=== PATIENT | female | born 1980 | race Caucasian/White ===

== ENCOUNTER → 2016-10-11 | Outpatient (CLI) | payer BC, OTHER ==
[~2016-10-11] MED LIST: CALC500C3 PO; DOCU-94 PO; FERR1TAB23 PO; IBUP-1428 PO; OXYC-57 PO; PRENTAB26 PO
== END | disposition home or self-care (01) ==
LOC: C.LABSPEC 12:51
PROVIDERS: ATTEND Obstetrics & Gynecology
DX: O09.523 Supervision of elderly multigravida, third trimester (principal); Z3A.00 Weeks of gestation of pregnancy not specified

== ENCOUNTER 2016-11-11 06:10 | Inpatient (IN) | payer BC, OTHER ==
--- NOTE | 2016-11-10 10:37 | PAT Medication Instructions ---
Service Date Nov 10, 2016. Current Home Medication List Calcium Carbonate (Tums), 1-2 TAB PO PRN Multivit/Min/Iron/Fol Ac/Pren ( Vitamin), 1 TAB PO QAM Medication Instructions For Your Scheduled Surgery - Hold the following medications the morning of surgery: Calcium Carbonate (Tums), 1-2 TAB PO PRN Multivit/Min/Iron/Fol Ac/Pren ( Vitamin), 1 TAB PO QAM If you have any questions please call us at [phone] (Shirley Villa PA-C) or [phone] or [phone]
[2016-11-10 12:27] LABS: BASO % 0.1 %; BASO ABS # 0.01 K/uL (0-0.2); COMPLETE YES; EOS % 0.5 %; HEMATOCRIT 32.2 % (37-47); IG% 0.4 %; LYMPH ABS # 2.06 K/uL (1.2-3.4); MEAN CELL VOLUME 79.7 fL (80-100); MEAN CORPUSCULAR HEMOGLOBIN 25.5 pg (25-34); MEAN PLATELET VOLUME 11.4 fL (7.4-10.4); PLATELET COUNT 169 K/uL (130-400); RED BLOOD COUNT 4.04 M/uL (4.2-5.4); WHITE BLOOD COUNT 7.92 K/uL (4.8-10.8)
[~2016-11-11] VITALS: Ht 157.5 cm; Wt 76.4 kg
[2016-11-11] VITALS (9 sets, daily range): BP systolic 117–120; BP diastolic 80–82; PULSE 76–80; TEMP 36.2–36.7; O2SAT 96–100; Ht 157.5 cm; Wt 76.4 kg
--- NOTE | 2016-11-11 01:13 | History and Physical ---
History & Physical Date Nov 11, 2016. Chief Complaint Scheduled repeat section History of Present Illness The patient is a 36 year old @ 40 4/7 who presents for scheduled repeat section. She is feeling well, no complaints. complicated by history of section x 1 and advanced maternal age. Prior was performed for nonreassuring heart tones during labor. Past Medical/Surgical History Medical history: orthostatic hypotension, notes she has fainted all of her life. Surgical history: wisdom teeth, x 1, cryosurgery of cervix Additional History Hepatic Disease: No Endocrine Disorder: No Kidney Disease: No Hypertension: No Heart Disease: No Infectious Diseases: No LMP: 02/01/16 Allergies Coded Allergies: No Known Allergies (Unverified , 11/10/16) Home Medications Scheduled Calcium Carbonate (Tums), 1-2 TAB PO PRN Multivit/Min/Iron/Fol Ac/Pren ( Vitamin), 1 TAB PO QAM Physical Examination Skin: warm/dry, no rash Eyes: normal inspection, sclerae normal ENT: normal ENT inspection Head: normocephalic, atraumatic Neck: supple, no adenopathy, trachea midline Respiratory/Chest: lungs clear, normal breath sounds, no respiratory distress Cardiovascular: regular rate, rhythm, no edema, no murmur Abdomen / GI: non tender, + pertinent finding (gravid) Back: normal inspection Extremities: normal inspection, normal range of motion Neurologic/Psych: no motor/sensory deficits, alert, normal reflexes, oriented x 3 Diagnosis 36yo @ 40 4/7 History of section x 1 Advanced Maternal Age Plan of Treatment Repeat section. Admit to L&D, labs, EFM/toco, IVF. Ancef as pre-op antibiotic.
[~2016-11-11 06:10] MED LIST changes: +CITRIC ACID/SODIUM CITRATE 15 ML UDC PO SCH; -DOCU-94 PO; -FERR1TAB23 PO; -IBUP-1428 PO; +LACTATED RINGER'S 1000ML 1,000 ML IV SCH; -OXYC-57 PO
[2016-11-11] MEDS ORDERED: CEFAZOLIN IV 2,000 MG/60 ML D5W IV ONE (07:00)
[2016-11-11] MEDS ORDERED: MoRPHine SULFATE PF 1 MG/ML 10 ML AMP/VIAL ONE (07:51)
[2016-11-11] MEDS ORDERED: FENTANYL CITRATE INJ 50 MCG/1 ML 2 ML VIAL ONE (07:51)
--- NOTE | 2016-11-11 08:02 | History & Physical Bridge Note ---
H&P Re-Evaluation Bridge Note: I have examined the patient, reviewed the History & Physical and in the interval since the performance of the History & Physical I have noted the following changes of clinical significance: No changes noted
[2016-11-11] MEDS ORDERED: OXYTOCIN INJ 10 UNITS/ML VIAL ONE ×4 (08:36→08:52)
[2016-11-11] MEDS ORDERED: KETOROLAC TROMETHAMINE 30 MG/ML VIAL ONE (08:36)
[2016-11-11] MEDS ORDERED: ONDANSETRON INJ 2 MG/ML 2 ML VIAL ONE (08:36)
[2016-11-11] MEDS ORDERED: PHENYLEPHRINE 100MCG/ML 5ML SYR ONE (08:36)
[2016-11-11] MEDS ORDERED: EpHEDrine SULFATE 50MG/5ML SYR ONE (08:36)
--- NOTE | 2016-11-11 09:16 | [facility] Post Operative Brief Note ---
Immediate Operative Summary Operative Date Nov 11, 2016. Pre-Operative Diagnosis Term , desire for repeat Caesarean section Post-Operative Diagnosis Same with delivery of living male child at 0836 Procedure(s) Performed Repeat Low transverse Caesarean section Surgeon Dr. Livier Morris No Bake Molder Surgeon(s) Dr.Daniel Davis Estimated Blood Loss 400 Findings Viable male , Apgars 8/9. Weight 8#9. Normal appearing uterus, tubes, ovaries. Specimens a. placenta- hold b. cord blood specimen Drains Vásquez, clear yellow Anesthesia Spinal Complication(s) None Disposition Recovery Room / PACU
[2016-11-11] MEDS ORDERED: OXYTOCIN INJ 20 UNITS in LACTATED RINGER'S 1000ML 1,000 ML IV SCH (09:29)
[2016-11-11] MEDS ORDERED: LANOLIN OINT EXT PRN ×2 (09:30)
[2016-11-11] MEDS ORDERED: DIPHTHERIA/TETANUS/PERTUSSIS 0.5 ML SYR/VIAL IM. ONE (09:30)
[2016-11-11] MEDS ORDERED: BENZOCAINE 20% AER SPR 82.5 GM CAN EXT PRN (09:30)
[2016-11-11] MEDS ORDERED: SUPERCREAM 0.870 % 15GM JAR EXT PRN (09:30)
[2016-11-11] MEDS ORDERED: HYDROCORTISONE ACETATE 25 MG SUPP PR PRN (09:30)
[2016-11-11] MEDS ORDERED: SODIUM CHLORIDE 0.9% 1000ML 1,000 ML IV PRN (09:37)
[2016-11-11] MEDS ORDERED: LACTATED RINGER'S 1000ML 500 ML IV PRN (09:37)
[2016-11-11] MEDS ORDERED: NALOXONE HCL INJ 0.08 MG in SYRINGE 1.8 ML IV PRN (09:37)
[2016-11-11] MEDS ORDERED: NALOXONE HCL INJ 1 MG in SODIUM CHLORIDE 0.9% 1000ML 1,000 ML IV PRN (09:37)
[2016-11-11] MEDS ORDERED: ONDANSETRON INJ 2 MG/ML 2 ML VIAL IV PRN (09:45)
[2016-11-11] MEDS ORDERED: PROMETHAZINE HCL INJ 6.25 MG in SODIUM CHLORIDE 0.9% 50ML 50 ML IV PRN (09:45)
[2016-11-11] MEDS ORDERED: EpHEDrine SULFATE INJ 50 MG/ML AMP IV PRN (09:45)
[2016-11-11] MEDS ORDERED: METOCLOPRAMIDE HCL INJ 10 MG in SODIUM CHLORIDE 0.9% 50ML 50 ML IV PRN (09:45)
[2016-11-11] MEDS ORDERED: NO NARCOTICS OR SEDATIVES SCH (09:45)
[2016-11-11] MEDS ORDERED: MoRPHine SULFATE PF 1 MG/ML 10 ML AMP/VIAL EPI PRN (09:45)
[2016-11-11] MEDS ORDERED: MEPERIDINE HCL 25 MG/ML CARP IV PRN (09:45)
[2016-11-11] MEDS ORDERED: NALBUPHINE HCL INJ 10 MG/ML AMP IV PRN (09:45)
[2016-11-11] MEDS ORDERED: LORAZEPAM INJ 0.5 MG in SYRINGE 0.75 ML IV PRN (09:45)
[2016-11-11] MEDS ORDERED: NALOXONE HCL 0.4 MG/1 ML VIAL/CARP IV PRN (09:45)
[2016-11-11] MEDS ORDERED: LORAZEPAM 1 MG TAB PO PRN (09:45)
[2016-11-11] MEDS ORDERED: DiphenhydrAMINE HCL 50 MG/ML VIAL IV PRN ×2 (09:45)
[2016-11-11] MEDS ORDERED: MoRPHine SULFATE 2 MG/ML CARP IV PRN (09:45)
[2016-11-11] MEDS ORDERED: KETOROLAC TROMETHAMINE 30 MG/ML VIAL IV. PRN (09:45)
--- NOTE | 2016-11-11 10:21 | OPERATIVE REPORT ---
DATE OF OPERATION: 11/11/2016 PREOPERATIVE DIAGNOSIS: Term with desire for repeat section. POSTOPERATIVE DIAGNOSIS: Same. PROCEDURES PERFORMED: Repeat low transverse section. SURGEON: Dr. Morris. CAR[employer] SERVICES COORDINATOR: Dr. Davis. ESTIMATED BLOOD LOSS: 400 mL FINDINGS: Viable male , Apgars 8 and 9, weight 8 pounds 9 ounces. Normal appearing uterus, tubes and ovaries. SPECIMENS: Placenta hold. DRAINS: Vásquez, clear yellow. ANESTHESIA: Spinal. COMPLICATIONS: None. DISPOSITION: Stable and good to recovery room. INDICATIONS FOR PROCEDURE: The patient is a 36-year-old G2, P1-0-0-1 at 40 weeks and 4 days, who attempted to go into labor with the hope of delivering by . However, she made no cervical change and elected to proceed with repeat section prior to labor. DESCRIPTION OF DELIVERY: The patient was seen in the preoperative room where risks, benefits, alternatives were reviewed. All questions were answered. She had previously signed informed consent in the office. She was then taken to the operating room where 2 grams of Ancef were infused, spinal anesthesia was introduced. She was prepared and draped in the usual sterile fashion in the supine position with a leftward tilt. A scalpel was used to perform the Pfannenstiel skin incision and as part of this incision, the previous scar was removed. The incision was then carried down to the layer of the fascia with the scalpel and nicked at midline and this incision was extended bilaterally with both sharp and blunt dissection. The superior aspect of the fascial incision was grasped with Nadine clamps x2, elevated off the underlying rectus abdominis muscles and dissected off bluntly and sharply. In a similar fashion, the inferior aspect of the incision was dissected. The muscles were at midline and entered bluntly and digitally. The incision was extended bluntly. The bladder blade was placed. The bladder flap was created using Metzenbaums and Lao bladder blade was replaced. Using a new scalpel, the hysterotomy incision was performed In a low transverse incision. This was extended cephalad caudad manually. The infant was delivered from a cephalic presentation. The head delivered followed by the shoulders and the body. No nuchal cord was noted. A spontaneous cry was heard on the field. The cord was doubly clamped and cut. The baby was handed off to the waiting pediatrics team. A segment was retained in case we needed cord gases. Cord blood was obtained. The placenta was then delivered using gentle traction. The uterus was exteriorized and swept of all clots and debris. The hysterotomy incision was reapproximated using 0 Vicryl in running stitch. A second layer of the same suture was used to imbricate the incision. The uterus and abdomen were inspected. The abdomen was irrigated. The uterus was returned to the abdomen. The gutters were cleared of all clots and debris. Again, excellent hemostasis was observed. The fascial incision was reapproximated using 0 Vicryl in a running stitch. Subcutaneous tissue was reapproximated using interrupted sutures of 2-0 plain gut and the skin incision was reapproximated using 4-0 Vicryl in a subcuticular stitch. Steri-Strips were applied. The patient and the baby tolerated the delivery well and are in stable and good condition. I attest to the content of the Intraoperative Record and any orders documented therein. Any exceptions are noted below. AYUSH
--- NOTE | 2016-11-11 10:40 | Anesthesiology Progress Note ---
Anesthesia Post Op Note Date & Time Nov 11, 2016 at 10:40 Notes Mental Status: alert / awake / arousable, participated in evaluation Pt Amnestic to Procedure: No Nausea / Vomiting: adequately controlled Pain: adequately controlled Airway Patency, RR, SpO2: stable & adequate BP & HR: stable & adequate Hydration State: stable & adequate Neuraxial Anesthesia: was administered, sensory block is resolving Anesthetic Complications: no major complications apparent
[2016-11-11] MEDS ORDERED: LACTATED RINGER'S 1000ML 500 ML IV ONE (14:15)
[2016-11-11] MEDS ORDERED: NURSING VERBAL MED ORDER ONE ×2 (14:15→18:45)
[2016-11-11 15:13] LABS: THYROID STIMULATING HORMONE 3.98 uIu/ml (0.300-4.500)
[2016-11-11] MEDS ORDERED: SCOPOLAMINE 1.5 MG TDSY TD ONE (18:45)
[2016-11-11] MEDS: DOCUSATE SODIUM 100 MG CAP PO SCH (19:33)
[2016-11-12] VITALS (7 sets, daily range): BP systolic 101–111; BP diastolic 67–74; PULSE 60–93; TEMP 36.7–37.4; O2SAT 98–99
[2016-11-12] MEDS ORDERED: KETOROLAC TROMETHAMINE 30 MG/ML VIAL IV. PRN (02:00)
[2016-11-12] MEDS ORDERED: DiphenhydrAMINE HCL 50 MG/ML VIAL IV PRN (02:00)
[2016-11-12] MEDS ORDERED: OXYCODONE/ACETAMINOPHEN 5-325 TAB PO PRN ×2 (02:00)
[2016-11-12] MEDS ORDERED: ONDANSETRON INJ 2 MG/ML 2 ML VIAL IV PRN (02:00)
[2016-11-12] MEDS ORDERED: DC INTRASPINAL MORPHINE ONE (02:00)
--- NOTE | 2016-11-12 07:34 | Progress Note ---
Subjective Nov 12, 2016. Subjective conversation w/ patient, physical exam Ambulation: ambulating normally Voiding: no voiding problems Passing Gas: No Diet Tolerance: Regular Diet (hungry, but still has not passed gas so therefore has not eaten yet) Lochia: Small Feeding Type: Breast Feeding Review of Systems Constitutional: No chills, No fatigue, No fever Respiratory: No cough, No shortness of breath Cardiac: No chest pain, No palpitations Objective Vital Signs Date Time Temp Pulse Resp B/P Pulse Ox O2 Delivery O2 Flow Rate FiO2 11/12/16 04:02 37.0 68 20 101/67 Room Air 11/12/16 02:00 20 98 11/12/16 01:00 18 99 11/12/16 00:00 36.9 93 18 111/74 98 Room Air 11/12/16 00:00 18 98 11/12/16 00:00 98 Room Air 11/11/16 23:00 18 96 11/11/16 22:00 16 98 11/11/16 21:00 18 100 11/11/16 20:00 18 99 11/11/16 20:00 99 Room Air 11/11/16 20:00 36.7 76 18 120/80 99 Room Air 11/11/16 19:00 16 99 11/11/16 18:03 16 97 11/11/16 18:00 36.7 11/11/16 17:00 16 97 11/11/16 16:45 36.2 80 20 117/82 Room Air Physical Exam General Appearance: WELL-APPEARING, NO APPARENT DISTRESS Respiratory/Chest: lungs clear, no respiratory distress Cardiovascular: regular rate, rhythm, no murmur Abdomen: non tender, soft Fundus: Firm, Non-Tender, Relation to Umbilicus Extremities: non-tender, no calf tenderness Laboratory Results Last 24 Hours Test 11/11/16 14:30 11/12/16 06:00 Thyroid Stimulating Hormone (TSH) 3.980 uIu/ml Free Thyroxine 0.91 ng/dl Assessment and Plan Post-Op Day#: 1 Continue Routine Care: s/p day 1 - vital signs reviewed and wnl (Patient had low temp yesterday after and used bear hugger warmer, temp increased back to normal afterwards) - hgb pending this am - Blood: O+, GBS-, Rubella immune - Patient doing well clinically - Still has not passed gas, waiting to pass gas before eating regular diet - Encourage breast feeding, encourage ambulation - CONTINUE ROUTINE POST CARE
[2016-11-12] MEDS: CHECK SCOPOLAMINE PATCH PLACEMENT SCH ×3 (08:00→18:28)
[2016-11-12 08:30] LABS: BASO % 0.1 %; BASO ABS # 0.01 K/uL (0-0.2); EOS % 0.1 %; HEMATOCRIT 26.9 % (37-47); IG% 0.3 %; LYMPH % 14.3 %; LYMPH ABS # 1.28 K/uL (1.2-3.4); MEAN CELL VOLUME 78.7 fL (80-100); MEAN CORPUSCULAR HEMOGLOBIN 25.4 pg (25-34); MEAN CORPUSCULAR HGB CONC 32.3 g/dl (32-36); MEAN PLATELET VOLUME 10.7 fL (7.4-10.4); MONO % 5.8 %; NEUT % 79.4 %; PLATELET COUNT 128 K/uL (130-400); RED BLOOD COUNT 3.42 M/uL (4.2-5.4); WHITE BLOOD COUNT 8.98 K/uL (4.8-10.8)
[2016-11-12] MEDS: PRENATAL VITAMIN TAB PO SCH (08:48)
[2016-11-12] MEDS: DOCUSATE SODIUM 100 MG CAP PO SCH ×2 (08:48→19:49)
[2016-11-12] MEDS: IBUPROFEN 600 MG TAB PO PRN ×3 (08:49→21:13)
[2016-11-12 09:08] LABS: COMPLETE YES
[2016-11-13] MEDS: IBUPROFEN 600 MG TAB PO PRN ×2 (03:45→07:41)
[2016-11-13] MEDS: PRENATAL VITAMIN TAB PO SCH (07:41)
[2016-11-13] MEDS: DOCUSATE SODIUM 100 MG CAP PO SCH (07:41)
[2016-11-13 07:47] VITALS: BP 102/69; PULSE 66; TEMP 36.7
[2016-11-13] MEDS ORDERED: FERR1TAB23 PO (08:44)
[2016-11-13] MEDS ORDERED: OXYC-57 PO (08:44)
[2016-11-13] MEDS ORDERED: IBUP-1428 PO (08:44)
[2016-11-13] MEDS ORDERED: DOCU-94 PO (08:44)
--- NOTE | 2016-11-13 08:45 | Discharge Instructions ---
Discharge Instructions Date of Service Nov 13, 2016. Admission Reason for Admission: Previous Section Discharge Discharge Diagnosis / Problem: s/p RLTCS Discharge Goals Goal(s): Routine recovery after Activity Recommendations Activity Limitations: per Instructions/Follow-up section . Instructions / Follow-Up Instructions / Follow-Up ACTIVITY RECOMMENDATIONS: * Gradual return to full activity over the next 2-3 weeks. * No lifting - nothing heavier than baby over the next 2-3 weeks. * Do not engage in vigorous exercise, sexual activity or sports until cleared by your physician. * Do not drive or operate any motorized equipment until cleared by your physician. * You may shower/bathe daily. MEDICATIONS: For discomfort or pain, you may use Acetaminophen (Tylenol), Ibuprofen (Advil), or Naproxen (Aleve) following the package directions. For constipation you may use Colace following the package directions. BREAST CARE: If you are not breast feeding: * Wear a supportive bra 24 hours a day for one to two weeks. * Avoid stimulating your breasts and nipples as much as possible during the first few weeks after delivery. * When taking a shower, have the warm water hit your back, not breasts. * When your breasts feel full, apply ice packs. Usually three to four times a day helps ease the discomfort. * Take a mild pain medication (Tylenol / Motrin) when you are uncomfortable. If breast feeding: * Use breast milk to lubricate nipples. Lansinoh cream may be used for sore nipples. You do not need to remove cream prior to breast feeding. If using a different brand of cream, check the label for directions regarding removal of cream prior to nursing. * Wear a supportive bra. * If having problems with breasts or breast feeding, call a business analysis consultant or your health care provider. SPECIAL CARE INSTRUCTIONS: When you are discharged from the hospital, it is important for you to follow the instructions listed below: * During the first week at home, you should be able to care for yourself and your baby. In addition, the usual light household activities are encouraged. * Limit your activities to the way you feel. Do not try to clean the house or move furniture. Be sensible. * If you actively engage in sports and have done so up until the time of your delivery, you may resume these activities as soon as you feel able. This may take up to one month or even longer. Use good judgment. * Continue to take your vitamins for at least six weeks after the of your baby. * Your diet need not be limited unless you were on a special diet before your delivery. Breast-feeding mothers need around 2500 calories per day and at least 64-80 ounces of fluid per day (8 to 10 glasses). * You should eat foods from the four major food groups. Crash diets or fad diets are to be avoided. Eating lean meats, fresh fruits and vegetables, low-fat dairy products, high fiber foods and a regular exercise program, will help you get back to your pre- weight without putting your health at risk. * Constipation is sometimes a problem after delivery. Take a mild laxative as needed. If breast feeding, Milk of Magnesia is acceptable to use. You may use a suppository or Fleets enema. * A daily shower or tub bath is suggested. Wash incision daily with warm soapy water and pat dry. It doesn't need to be covered unless drainage is present. * A bloody vaginal discharge will usually continue until around four weeks . A small amount of bleeding may continue for as long as six weeks. Vaginal discharge changes from the bright red bleeding after delivery to pink then brownish and finally yellowish-pink before becoming white and disappearing. * Bleeding may increase with activity. Your first period may come in 4-8 weeks. If you are breast feeding, your period may be delayed even longer. * [place] (sex) can begin whenever both you and your partner feel comfortable and do not have any form of genital infection. It is recommended that you wait at least six weeks for internal and external healing to occur. If you have questions, please talk to your health care practitioner. A condom should be used to prevent infection and . * Foreplay, gentle intercourse and lubrication is very important the first several times to prevent pain. A water-based lubricant such as K-Y jelly or Astroglide may be used. * If you have RH negative blood and your baby is RH positive, you will receive RHOGAM by injection prior to discharge. The nurse will give you a card to keep with you that has the date and place that you received RHOGAM after delivery. * During your care, you had a Rubella screen done to check for the presence of rubella antibodies in your blood. If your test was negative, you will receive a Rubella vaccine prior to discharge. This vaccine may cause a fever, soreness at the injection site and flu-like symptoms. If these symptoms persist, notify your health care practitioner. is not advised for one month after a Rubella vaccine. * Verbalizes understanding of car seat law as reviewed with patient nursing. * Car Seat hand-out given and reviewed with patient by nursing. * Shaken baby information reviewed with patient by nursing. Call you doctor if: * Heavy bleeding (saturating several pads an hour) or passing clots the size of your fist. * A fever >101 degrees F (38.3 degrees C) on two occasions four hours apart and /or chills. * Unusual pain in the pelvic or vaginal areas. * Call the doctor for any increased redness, drainage or swelling around the incision and any pain unrelieved by prescribed pain medication. * "Baby Blues" lasting longer than two weeks. If you have any questions or concerns, call your health care practitioner at . FOLLOW UP VISIT: * Please call the office at to schedule a 6 week examination. It is important you keep this appointment. It is important for you to make arrangements for either yearly or twice yearly check-ups thereafter. Current Hospital Diet Patient's current hospital diet: Vegetarian Diet, Regular OB Diet Discharge Diet Recommended Diet: Regular OB Diet Procedures Procedures Performed: Repeat Low transverse Caesarean section Pending Studies Studies pending at discharge: no Medical Emergencies . Who to Call and When: Medical Emergencies: If at any time you feel your situation is an emergency, please call [phone] immediately. . Non-Emergent Contact Non-Emergency issues call your: Primary Care Provider, [employer] . . "Provider Documentation" section prepared by Livier Morris. VTE Core Measure Inpt VTE Proph given/why not?: Joey Garvey
--- NOTE | 2016-11-13 08:49 | Progress Note ---
Subjective Nov 13, 2016. Subjective conversation w/ patient, physical exam Ambulation: ambulating normally Voiding: no voiding problems Passing Gas: Yes Diet Tolerance: Regular Diet Lochia: Moderate Feeding Type: Breast Feeding Comment: Feeling well, no complaints. Review of Systems Constitutional: No problem reported Respiratory: No problem reported Cardiac: No problem reported Breast: No problem reported Abdomen: No problem reported Female : No problem reported Objective Vital Signs Date Time Temp Pulse Resp B/P Pulse Ox O2 Delivery O2 Flow Rate FiO2 11/13/16 07:47 36.7 66 20 102/69 Room Air 11/12/16 23:45 36.7 60 18 103/71 Room Air 11/12/16 23:45 Room Air 11/12/16 16:03 Room Air 11/12/16 16:01 37.0 69 20 107/73 Room Air Physical Exam General Appearance: WELL-APPEARING, WD/WN Respiratory/Chest: no respiratory distress Cardiovascular: regular rate, rhythm Abdomen: non tender, soft Fundus: Firm Incision Description: Clean, Dry & Intact Extremities: normal inspection Assessment and Plan Problem List POD#2 RLTCS Anemia of acute blood loss, asymptomatic Post-Op Day#: 2 Continue Routine Care: POD#2 - doing well. Would like to go home. Rx given: percocet, motrin, colace, iron Discussed hgb 8.7, asymptomatic, will Rx iron. All discharge instructions reviewed, questions answered. Followup in office 6 weeks. Discharge home today.
[2016-11-13 10:50] VITALS: BP_DIAS 69; PULSE 66; TEMP 36.7
--- NOTE | 2016-11-17 23:12 | DISCHARGE SUMMARY ---
ADMISSION DIAGNOSIS: Term intrauterine with desire for repeat section. DISCHARGE DIAGNOSIS: Same. PROCEDURES PERFORMED: Repeat low transverse section with spinal anesthesia. CONDITION ON DISCHARGE: Stable and good. DESCRIPTION OF HOSPITAL COURSE: The patient was admitted following her repeat section. Of note, following spinal anesthesia, the patient experienced hypothermia, this resolved after the spinal wore off. She did experience nausea and vomiting throughout the time of the spinal. After surgery, the patient recovered in standard fashion and received routine postoperative care. She was discharged to home in stable and good condition. Follow up in 6 weeks in the office. ACTIVITY: No heavy lifting and pelvic rest. DIET: Regular. MEDICATIONS: Motrin and Percocet.
== END 2016-11-13 11:15 | disposition home or self-care (01) | DRG 766 ==
LOC: C.LD 06:10 → EDSTATUS 14:06 → C.OBG 17:02
PROVIDERS: ADMIT Obstetrics & Gynecology; ATTEND Obstetrics & Gynecology
PROC: 10D00Z1 Extraction of Products of Conception, Low, Open Approach (ICD-10-PCS; principal; 2016-11-11 08:15)
DX: O34.211 Maternal care for low transverse scar from previous cesarean delivery (principal); O09.523 Supervision of elderly multigravida, third trimester; I95.1 Orthostatic hypotension; Z3A.40 40 weeks gestation of pregnancy; Z37.0 Single live birth

== ENCOUNTER → 2017-12-04 | Outpatient (CLI) | payer OTHER ==
[~2017-12-04] MED LIST changes: -CITRIC ACID/SODIUM CITRATE 15 ML UDC PO SCH; +DOCU-94 PO; +FERR1TAB23 PO; -LACTATED RINGER'S 1000ML 1,000 ML IV SCH
[2017-12-04 18:23] LABS: BASO % 0.1 %; BASO ABS # 0.01 K/uL (0-0.2); EOS % 0.1 %; EOS ABS # 0.01 K/uL (0-0.5); HEMATOCRIT 38.3 % (37-47); HEMOGLOBIN 13.3 g/dL (12.0-16.0); IG# 0.01 K/uL (0.00-0.02); LYMPH % 13.9 %; LYMPH ABS # 1.27 K/uL (1.2-3.4); MEAN CELL VOLUME 79.8 fL (80-100); MEAN CORPUSCULAR HEMOGLOBIN 27.7 pg (25-34); MEAN CORPUSCULAR HGB CONC 34.7 g/dl (32-36); MEAN PLATELET VOLUME 10.7 fL (7.4-10.4); MONO % 3.2 %; MONO ABS # 0.29 K/uL (0.11-0.59); NEUT % 82.6 %; NEUT ABS # 7.55 K/uL (1.4-6.5); PLATELET COUNT 237 K/uL (130-400); RED CELL DISTRIBUTION WIDTH CV 13.4 % (11.5-14.5); WHITE BLOOD COUNT 9.14 K/uL (4.8-10.8)
[2017-12-04 19:20] LABS: ALBUMIN 4.1 gm/dl (3.4-5.0); ALT/SGPT 28 U/L (12-78); AST/SGOT 22 U/L (15-37); BLOOD UREA NITROGEN 11 mg/dl (7-18); CALCIUM 9.1 mg/dl (8.5-10.1); CARBON DIOXIDE 26 mmol/L (21-32); CREATININE 0.74 mg/dl (0.60-1.20); GLUCOSE 121 mg/dl (70-99); POTASSIUM 3.7 mmol/L (3.5-5.1); SODIUM 138 mmol/L (136-145)
[2017-12-04 19:31] LABS: ALKALINE PHOSPHATASE 93 U/L (45-117); TOTAL PROTEIN 7.9 gm/dl (6.4-8.2)
== END | disposition home or self-care (01) ==
LOC: C.LAB 16:29
PROVIDERS: ATTEND Family Medicine
DX: R42 Dizziness and giddiness (principal)

== ENCOUNTER → 2017-12-08 | Outpatient (CLI) | payer OTHER ==
[2017-12-08 18:03] LABS: RETIC COUNT % 1.3 % (0.5-2.0)
[2017-12-08 18:37] LABS: TOTAL PROTEIN 7.5 gm/dl (6.4-8.2)
== END | disposition home or self-care (01) ==
LOC: C.LAB 16:26
PROVIDERS: ATTEND Family Medicine
DX: R94.5 Abnormal results of liver function studies (principal); D64.9 Anemia, unspecified

== ENCOUNTER → 2017-12-14 | Outpatient (CLI) | payer OTHER ==
--- NOTE | 2017-12-14 10:02 | DIAGNOSTIC IMAGING REPORT ---
ULTRASOUND ABDOMEN COMPLETE CLINICAL HISTORY: Elevated hepatic transaminases. COMPARISON STUDY: No priors. TECHNIQUE: Real-time, grayscale, and color flow sonography of the abdomen was performed. Images are reviewed in the transverse and longitudinal planes. FINDINGS: Liver: The liver is normal in size and echotexture. There is no intrahepatic biliary ductal dilatation. The main portal vein is patent. Gallbladder: The gallbladder is normal in appearance. No gallstones are identified. There is no gallbladder wall thickening or pericholecystic fluid. A sonographic Gomez's sign is reportedly absent. The common bile duct measures up to 0.3 cm in diameter. Pancreas: Visualized portions of the pancreatic head and body are normal in appearance. Spleen: The spleen is normal in size and echotexture, measuring 11.4 cm in length. Kidneys: The kidneys are normal in size and echotexture. There is no hydronephrosis. The right kidney measures 11.2 cm in length and the left kidney measures 12.0 cm in length. No shadowing calculi are identified. Abdominal vasculature: Visualized portions of the abdominal aorta and IVC are normal as imaged. Ascites: None. IMPRESSION: Unremarkable sonographic assessment of the abdomen. Electronically signed by: Kris Taylor M.D. 12/14/2017 10:01 AM Dictated Date/Time: 12/14/2017 10:00 AM
== END | disposition home or self-care (01) ==
LOC: C.ULTRBC 09:17
PROVIDERS: ATTEND Family Medicine
DX: R94.5 Abnormal results of liver function studies (principal)